=== PATIENT | female | born 1990 | race Caucasian/White ===

== ENCOUNTER 2022-08-09 13:14 | Emergency (ER) | payer OTHER ==
[~2022-08-09] VITALS: Ht 160 cm; Wt 95.3 kg
[2022-08-09] MEDS ORDERED: NIZORAL SHAMPO120 ML TP (14:31)
[2022-08-09] MEDS ORDERED: CLOBETASOL PROP50 ML TP (14:31)
[2022-08-09] MEDS ORDERED: SERTRALINE HCL100 MG PO (14:31)
== END 2022-08-09 16:32 | disposition home or self-care (01) ==
LOC: ER 13:14
DX: S93.401A Sprain of unspecified ligament of right ankle, initial encounter (principal); W19.XXXA Unspecified fall, initial encounter; Y93.89 Activity, other specified; Y92.89 Other specified places as the place of occurrence of the external cause; Y99.8 Other external cause status; Z88.8 Allergy status to other drugs, medicaments and biological substances